=== PATIENT | female | born 1950 | race Caucasian/White ===

== ENCOUNTER 2017-05-06 14:00 | Emergency (ER) | payer MEDICARE, OTHER ==
[2017-05-06 14:00] VITALS: BP 213/107; PULSE 120; RESP 25; O2SAT 98
[2017-05-06] MEDS ORDERED: Famotidine 20 mg/50 mL NS Premix IV ONE (14:09)
--- NOTE | 2017-05-06 14:09 | ED.REPORT ---
HPI-Allergic Reaction Date of Service May 06, 2017 ED Provider: Panda Perea MD Pt is a 66 year old female who presents to the ED with concerns for significant swellin gof her tongue immediately prior to arrival. Her states that she was normal before she went to sleep last night, but woke up with swelling. They state that they went to an urgent care facility where they prescribed her a medication. Shortly afterwards, her symptoms began to progress rapidly. She denies any rash, chest pain or any other symptoms. She reports that she started taking lisinopril for her high blood pressure about 2 months ago. Nursing Notes Stated Complaint: ALLERGIC REACTION Nursing Notes Reviewed: Yes Allergies: Coded Allergies: No Known Allergies (Unverified , 05/06/17) General Time Seen by MD: 14:08 Chief Complaint Allergic reaction Hx Obtained From: Patient Arrived By: Walk-in Onset Occurred: Just prior to arrival Symptom Duration: Since onset Severity: Current: No pain currently Severity: Maximum: No pain Similar Sx Previous: Yes Past Medical History Past Medical History rhematoid arthritis Ambulatory Status Independent Review of Systems Constitutional: Denies: Chills, Fever, Malaise, Weakness - generalized Ears / Nose / Throat: Reports: Tongue swelling Respiratory: Reports: Shortness of breath, Denies: Pleuritic pain, Wheezing GI: Denies: Abdominal pain, Nausea, Vomiting Skin: Denies Diaphoresis Neurologic: Denies: Headache, Syncope, Weakness Complete sys rev & neg: except as marked. Physical Exam Initial Vital Signs Vital Signs (First) Date Time Temp Pulse Resp B/P Pulse Ox O2 Delivery O2 Flow Rate FiO2 05/06/17 14:00 120 25 213/107 98 Room Air Initial VS: Reviewed Head / Eyes: Atraumatic, Normocephalic, PERRL Neck: Supple, Non-tender, Full range of motion Abdomen / GI: Soft, Non-tender, No guarding, No rebound, No distention Neurologic: Alert, Oriented, Nonfocal General/Constitutional: Awake, Alert, Well appearing, Cooperative Respiratory / Chest: Atraumatic, Breath sounds NL, Breath sounds = bilat, No respiratory distress Cardiovascular: Heart rate NL, Regular rhythm, Heart sounds NL, No gallop, No murmurs, No rubs, Cap refill not delayed Skin: Atraumatic, Color NL, No rash, Warm, Dry ENT: Mucous membranes moist Left sided tongue swelling Re-Eval/Medical Decision Source of Hx: Old records Re-Evaluation/Progress #1: Time of Eval: 14:33 Patient Status: Mild relief Re-Evaluation/Progress #2: Time of Eval: 15:38 Patient Status: Condition improved Re-Evaluation/Progress Note: Pt reports that he tongue is still mildly swollen, but is improving. She is informed of the plan to discharge her at this time. She understands and agrees, all questions are addressed. Counseled Regarding: Diagnosis, Lab results, Need for follow-up, When/why to return to ED Discharge & Departure Primary Impression: Angio-edema Encounter type: initial encounter Qualified Code: T78.3XXA - Angioneurotic edema, initial encounter Disposition: Home Discharge Condition All VS Reviewed: Yes Condition: Stable Patient Instructions: Angioedema (ED) Additional Instructions: I believe that the reaction you had and continue to have is known as angioedema. This is most likely caused by the lisinopril that you take. There are, however, a number of other allergic possibilities. I recommend for now that you take Benadryl 25-50 mg every 6 hours as needed for ongoing tongue swelling. If things seem to be getting worse at all, return to the emergency department promptly. Follow-up with your doctor in the coming days to discuss therapeutic alternatives and the consideration of further investigation as to the cause of your symptoms. Do not take lisinopril again, ever! Scribe Attestation Portions of this note were transcribed by Augusta Snider. I, Dr. Perea personally performed the history, physical exam and medical decision-making; I reviewed and confirmed the accuracy of the information in the transcribed note. Signed by: Ben Aquino, 05/06/2017 1537 Panda Perea MD May 06, 2017 14:09 FERNANDA SNIDER May 06, 2017 14:12
[2017-05-06] MEDS ORDERED: MethylprednisoLONE Sodium Succinate 62.5 mg/mL 2 mL Inj IVPUSH ONE (14:15)
[2017-05-06] MEDS ORDERED: Famotidine Inj 20 MG in IV Premix 1 EACH IV ONE (14:15)
[2017-05-06 14:40] VITALS: BP 175/95; PULSE 120; RESP 23; O2SAT 99
== END 2017-05-06 16:32 | disposition home or self-care (01) ==
LOC: SED 14:00
DX: T78.3XXA Angioneurotic edema, initial encounter (principal); X58.XXXA Exposure to other specified factors, initial encounter; Y93.89 Activity, other specified; Y92.89 Other specified places as the place of occurrence of the external cause; Y99.8 Other external cause status; M06.9 Rheumatoid arthritis, unspecified
CPT/HCPCS: 94799; 96372; 96374; 96375; 99284; J0171; J1200; J2930; J3490